=== PATIENT | male | born 1960 | race Two or more races ===

== ENCOUNTER 2025-05-22 02:05 | Emergency (ER) | payer OTHER, MEDICAID ==
[~2025-05-22] VITALS: Ht 180.3 cm; Wt 54.5 kg
--- NOTE | 2025-05-22 02:36 | ED.PDOC ---
SOB-HPI HPI Comments 65 year old male with a recent Hx of Pneumonia, and Esophageal Cancer Presents to the ED Via EMS for the c/c of SOB. Pt states that his SOB started approx 1x hour before arrival to the ED, and notes of no alleviating factors at this time. Pt notes of increased secretions, and having a difficult time managing them. Pt notes that he is taking his prescribed Antibiotics for this recent Pneumonia Dx. EMS notes that pt is currently SAT on 99% RA. Pt denies any Cough, MORGAN, Chest pain, ABD pain, N/V/D, or any other associated Symptoms or Modifiers at this time. Physical exam: General: Awake, alert and oriented. Mild distress. Skin: Skin in warm, dry and intact. Appropriate color for ethnicity. HEENT: The head is normocephalic and atraumatic. Conjunctivae are clear without exudates or hemorrhage. Sclera is non-icteric. EOM are intact. No signs of nystagmus. Eyelids are normal in appearance without swelling or lesions. Oral mucosa is pink and moist Neck: The neck is supple with normal range of motion. No JVD. Cardiac: Heart rate and rhythm are normal. No murmurs, gallops, or rubs are auscultated. Respiratory: No signs of respiratory distress. Lung sounds are clear in all lobes bilaterally without rales, rhonchi, or wheezes. Abdominal: Abdomen is soft, non-tender without distention. Bowel sounds are pr esent and normoactive in all four quadrants. Extremities: Upper and lower extremities are atraumatic in appearance without deformity or edema. Neurological: The patient is awake, alert and oriented to person, place, and time with normal speech. Speech is clear. There is no facial asymmetry. Psychiatric: Appropriate mood and affect. Good judgement and insight. REVIEW OF SYSTEMS: General: No fever, no chills, or fatigue HEENT: No sore throat, no earache, no congestion, no neck pain. Cardiac: No chest pain. No palpitations. Lungs: + shortness of breath, no cough. GI: No nausea, no vomiting, no diarrhea, no constipation, no abdominal pain : No dysuria, frequency, or urgency. No hematuria. Musculoskeletal: No joint pain , no joint swelling, no extremity edema. Skin: No rash, no itching. Neuro: No headache, no dizziness, no weakness Chief Complaint: Shortness of Breath Time Seen by MD: 02:30 Reviewed notes: Nurses Notes, Painter [employer] Notes, Medications, Allergies Information Source: Patient, Emergency Med Personnel Mode of Arrival: EMS Severity: Moderate Timing: Hours Duration: Since onset, Hours Context: At Rest PE Risk Factors: None History of: None Prehospital treatment: 12 Lead EKG, Accucheck, Pit Operator Modifying Factors: Exertion Associated Signs and Symptoms: None Quality: Pressure Radiation: No Radiation If cough with SOB: Non-Productive Past Medical History PAST MEDICAL HISTORY: Cancer Surgical History: Denies all surgeries Family History Family History: Unknown Social History Smoker: Non-Smoker Alcohol: Denies ETOH Use Drugs: Denies Drug Use Lives In: Home EKG EKG : Pulse Rate (adult): 81 [place]: Normal Cardiac Rhythm: NSR Block: None Hypertrophy: None ST: Normal Was a procedure done? Was a procedure done?: No Differential Dx Differential Diagnosis: Anxiety, Asthma, Cardiogenic Shock, COPD, Panic Attack, Pneumonia, Pneumothorax, Pulmonary Embolism X-Ray, Labs, Meds, VS Vital Signs Date Time Temp Pulse Resp B/P (MAP) Pulse Ox O2 Delivery O2 Flow Rate FiO2 05/22/25 07:40 78 14 97 Room Air* 0 21 05/22/25 07:40 98.1 78 14 135/58 (83) 97 98.1 05/22/25 07:30 98.2 76 14 135/58 (83) 97 98.2 05/22/25 04:36 20 97 Room Air* 0 21 05/22/25 04:36 98.1 79 20 131/54 (79) 97 98.1 05/22/25 02:36 81 05/22/25 02:10 98.5 81 20 147/86 98 98.5 05/22/25 02:08 81 Lab Test 05/22/25 04:20 05/22/25 02:13 Range/Units Urine Color Light-yellow Yellow Urine Clarity Turbid H Clear Urine pH 7.5 5.0-9.0 Urine Specific [place] 1.014 1.001-1.035 Urine Protein Negative Negative Urine Ketones Negative Negative Urine Blood Negative Negative /uL Urine Nitrite Negative Negative Urine Bilirubin Negative Negative Urine Urobilinogen Normal Negative mg/dL Urine Leukocyte Esterase Negative Negative /uL Urine RBC None seen 0 - 3 /hpf Urine Microscopic WBC 4 H 0-3 /HPF Urine Squamous Epithelial Cells None seen <5 /hpf Urine Amorphous Crystals Few None Seen /hpf Urine Bacteria None seen None Seen /hpf Urine Glucose Normal Normal mg/dL Influenza Type A Antigen Negative Negative Influenza Type B Antigen Negative Negative SARS-CoV-2 Antigen (Rapid) Negative NEGATIVE White Blood Count 10.7 4.4-10.8 10^3/uL Red Blood Count 3.28 L 4.5-5.90 10^6/uL Hemoglobin 9.0 L 13.5-17.5 g/dL Hematocrit 27.6 L 41.0-53.0 % Mean Corpuscular Volume 84.1 80.0-100.0 fL Mean Corpuscular Hemoglobin 27.5 L 28.0-32.0 pg Mean Corpuscular Hemoglobin Concent 32.7 32.0-36.0 g/dL Red Cell Distribution Width 15.5 H 11.8-14.3 % Platelet Count 822 *H 140-450 10^3/uL Mean Platelet Volume 7.5 6.9-10.8 fL Neutrophils (%) (Auto) 64.4 37.0-80.0 % Lymphocytes (%) (Auto) 20.9 10.0-50.0 % Monocytes (%) (Auto) 12.9 H 0.0-12.0 % Eosinophils (%) (Auto) 1.3 0.0-7.0 % Basophils (%) (Auto) 0.5 0.0-2.0 % Neutrophils # (Auto) 6.9 1.6-8.6 10 ^3/uL Lymphocytes # (Auto) 2.2 0.4-5.4 10 ^3/uL Monocytes # (Auto) 1.4 H 0-1.3 10 ^3/uL Eosinophils # (Auto) 0.1 0-0.8 10 ^3/uL Basophils # (Auto) 0.1 0-0.2 10 ^3/uL Nucleated Red Blood Cells 0.1 % Sodium Level 145 136-145 mmol/L Potassium Level 4.0 3.5-5.1 mmol/L Chloride Level 109 H 98-107 mmol/L Carbon Dioxide Level 28 20-31 mmol/L Anion Gap 8 5-15 Blood Urea Nitrogen 17 9-23 mg/dL Creatinine 0.61 L 0.700-1.30 mg/dL Glomerular Filtration Rate Calc 105 >90 mL/min BUN/Creatinine Ratio 27.9 H 10.0-20.0 Serum Glucose 109 H 74-106 mg/dL Calcium Level 10.6 H 8.7-10.4 mg/dL Troponin I High Sensitivity < 3 L </=54 ng/L B-Type Natriuretic Peptide 88.10 0-100 pg/mL Current Medications Medications (Trade) Dose Ordered Sig/Reuben Route Start Time Stop Time Status Last Admin Ceftriaxone Sodium 50 ml @ 100 mls/hr ONCE ONCE IV 05/22/25 05:00 05/22/25 05:29 DC 05/22/25 05:11 Aspirin 324 mg ONCE ONCE PO 05/22/25 05:15 05/22/25 05:16 DC 05/22/25 05:11 PATIENT: TOBIN THOMASON ACCT: [id number] UNIT: [id number] : 1960 LOC: ER ROOM / BED: / AGE / SEX: 65 / M ADM STATUS: REG ER SERVICE 1 ORDERING PHYSICIAN: KORIN GONZALEZ MD PROCEDURE(s): CXR1 - CHEST XRAY 1 VIEW REASON: Shortness of breath ORDER NUMBER(s): [id number], ACCESSION NUMBER(s): [id number] CHEST RADIOGRAPH Indication: Shortness of breath Technique: Single frontal view of the chest was obtained COMPARISON: None FINDINGS: Lines and Tubes: None Lungs: Chronic appearing bilateral interstitial pulmonary markings. Mild patchy right basilar pulmonary infiltrate. No evidence of focal consolidation. Pleura: No effusion. No pneumothorax. Cardiomediastinal contours: Unremarkable Bones: Unremarkable IMPRESSION: 1. Mild patchy right basilar pulmonary infiltrate. 2. Chronic appearing bilateral interstitial pulmonary markings. Time of 1ST Reevaluation: 03:00 Reevaluation 1ST: Unchanged Patient Education/Counseling: Other (Need for admission) Family Education/Counseling: No Family Present SEPSIS Sepsis Screen Date sepsis recognized/suspect: May 22, 2025 Time Sepsis recognized/suspect: 215 Recent Procedure: No On Antibiotic Therapy: Yes Respiratory Rate >20: No Heart Rate >90: No Temp<36 C (96.8 F) or >38.3 C: No SBP <90 or MAP <65 mmHG: No New Acute Mental Status Change: No Is the patient on CPAP, BIPAP,: No Physician Orders Chest Xray 1 View (05/22/25 02:32) Vital Signs Date Time Temp Pulse Resp B/P (MAP) Pulse Ox O2 Delivery O2 Flow Rate FiO2 05/22/25 07:40 78 14 97 Room Air* 0 21 05/22/25 07:40 98.1 78 14 135/58 (83) 97 98.1 05/22/25 07:30 98.2 76 14 135/58 (83) 97 98.2 05/22/25 04:36 20 97 Room Air* 0 21 05/22/25 04:36 98.1 79 20 131/54 (79) 97 98.1 05/22/25 02:36 81 05/22/25 02:10 98.5 81 20 147/86 98 98.5 05/22/25 02:08 81 Laboratory Tests Test 05/22/25 02:13 White Blood Count 10.7 10^3/uL (4.4-10.8) Departure 1 Departure Time of Disposition: 05:03 Impression: Primary Impression: Thrombocytosis Additional Impression: Pneumonia Disposition: 09 ADMITTED INPATIENT Condition: Serious Comments MDM: 65-year-old male presents with shortness of breath. Initial evaluation included thorough history, physical examination and appropriate diagnostic testing. Based on the clinical presentation and diagnostic findings, the patient appears to have thrombocytosis and pneumonia Given the complexity of the case and need for further management patient is being admitted to the hospitalist service for further monitoring, treatment and evaluation. Risks, benefits and alternatives of admission and proposed interventions were discussed with the patient. Patient is in agreement with the plan. Critical Care Note Critical Care Time?: No Stability Stability form required: No Heart Score Heart Score: Heart Score Response (Comments) Value History N/A 0 EKG N/A 0 Age N/A 0 Risk Factors N/A 0 Troponin N/A 0 Total 0 I personally scribed for KORIN GONZALEZ MD ([email or web address]) on 05/22/25 at 02:35. Electronically submitted by Cliff Ruff ([email or web address]). I personally scribed for KORIN GONZALEZ MD ([email or web address]) on 05/22/25 at 02:36. Electronically submitted by Cliff Ruff ([email or web address]). KORIN GONZALEZ MD May 22, 2025 02:35
[2025-05-22 02:44] LABS: Hemoglobin 9.0 g/dL (13.5-17.5)
[2025-05-22 02:46] LABS: Hematocrit 27.6 % (41.0-53.0); Mean Corpuscular Hemoglobin 27.5 pg (28.0-32.0); Mean Corpuscular Volume 84.1 fL (80.0-100.0); Nucleated Red Blood Cells % 0.1 %
[2025-05-22 02:50] LABS: Potassium 4.0 mmol/L (3.5-5.1); Sodium 145 mmol/L (136-145)
[2025-05-22 02:51] LABS: Anion Gap 8 (5-15); Carbon Dioxide 28 mmol/L (20-31)
[2025-05-22 02:52] LABS: Chloride 109 mmol/L (98-107)
[2025-05-22 02:53] LABS: Calcium 10.6 mg/dL (8.7-10.4)
[2025-05-22 02:56] LABS: BUN/Creatinine Ratio 27.9 (10.0-20.0); Blood Urea Nitrogen 17 mg/dL (9-23)
--- NOTE | 2025-05-22 02:59 | ECG ---
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
[2025-05-22 03:02] LABS: Glucose 109 mg/dL (74-106)
[2025-05-22] MEDS: IPRATROPIUM BROM 0.5 MG/2.5ML INH SOL NEB ONE (03:12)
[2025-05-22] MEDS: ALBUTEROL SULF 2.5 MG/0.5ML(0.5%) NEB SOLN NEB ONE (03:13)
--- NOTE | 2025-05-22 04:10 | DVH ---
CHEST RADIOGRAPH Indication: Shortness of breath Technique: Single frontal view of the chest was obtained COMPARISON: None FINDINGS: Lines and Tubes: None Lungs: Chronic appearing bilateral interstitial pulmonary markings. Mild patchy right basilar pulmona ry infiltrate. No evidence of focal consolidation. Pleura: No effusion. No pneumothorax. Cardiomediastinal contours: Unremarkable Bones: Unremarkable IMPRESSION: 1. Mild patchy right basilar pulmonary infiltrate. 2. Chronic appearing bilateral interstitial pulmonary markings.
[2025-05-22 04:36] VITALS: RESP 20; O2SAT 97
[2025-05-22 04:58] LABS: Urine Amorphous Crystal FEW /hpf (None Seen); Urine Protein, UAD Negative (Negative)
[2025-05-22 05:08] LABS: COVID19 ANTIGEN SOFIA FIA NEGATIVE (NEGATIVE)
[2025-05-22] MEDS: cefTRIAXone 1GM/50ML D5W 50 ML IV ONE (05:11)
[2025-05-22 07:40] VITALS: BP 135/58; PULSE 78; RESP 14; TEMP 98.1; O2SAT 97
== END 2025-05-22 08:21 | disposition left against medical advice (07) ==
LOC: EDBD 02:05 → ER 02:05
DX: D75.839 Thrombocytosis, unspecified (principal); J18.9 Pneumonia, unspecified organism; Z79.899 Other long term (current) drug therapy; Z87.01 Personal history of pneumonia (recurrent); Z20.822 Contact with and (suspected) exposure to COVID-19
CPT/HCPCS: 36415; 71045; 80048; 81001; 83880; 84484; 85025; 87426; 87804; 93005; 96365; 99285; J0696